=== PATIENT | female | born 1985 | race African-American/Black ===

== ENCOUNTER 2019-02-06 16:51 | Emergency (ER) | payer SELFPAY ==
[~2019-02-06] VITALS: Ht 182.9 cm; Wt 63.5 kg
[2019-02-06 17:11] VITALS: BP 106/69
--- NOTE | 2019-02-06 17:41 | NUR ---
PT BIB FRIEND C/O ABD PAIN X1 MONTH. PT REPORTS SHARP LOWER ABD PAIN AT 6/10, BURNING URINATION, AND INCREASED FREQUENCY AND URGENCY. REPORTS OCCASIONAL NAUSEA. DENIES VOMITING, FEVER, DIARRHEA OR CONSTIPATION. VSS. ER MD TO SEE PT. MEDHX:NONE RX:NONE
[2019-02-06 18:35] VITALS: BP 106/69
== END 2019-02-06 18:35 | disposition home or self-care (01) ==
LOC: MED 16:51
DX: N39.0 Urinary tract infection, site not specified (principal); F17.200 Nicotine dependence, unspecified, uncomplicated
CPT/HCPCS: 81002; 81025; 99283